=== PATIENT | male | born 1955 | race Two or more races ===

== ENCOUNTER 2023-06-13 17:36 | Emergency (ER) | payer OTHER, BC ==
[~2023-06-13] VITALS: Ht 182.9 cm; Wt 86.2 kg
[2023-06-13] MEDS ORDERED: TAMS0.4C PO (17:51)
[2023-06-13] MEDS ORDERED: LIPITOR20 MG PO (17:51)
== END 2023-06-13 22:19 | disposition home or self-care (01) ==
LOC: ER 17:36
DX: S00.93XA Contusion of unspecified part of head, initial encounter (principal); W18.39XA Other fall on same level, initial encounter; Y93.9 Activity, unspecified; Y92.520 Airport as the place of occurrence of the external cause; Y99.9 Unspecified external cause status